=== PATIENT | male | born 1975 | race Hispanic/Latino ===

== ENCOUNTER 2017-09-02 10:03 | Inpatient (IN) | payer MEDICAID ==
[2017-09-02 10:46] LABS: URINE BILIRUBIN NEGATIVE (NEGATIVE); URINE BLOOD NEGATIVE (NEGATIVE); URINE CLARITY Clear (Clear); URINE COLOR Yellow (YELLOW); URINE GLUCOSE (UA) 3+ mg/dL (Normal); URINE LEUKOCYTE ESTERASE NEG Leu/uL (Negative); URINE PROTEIN NEGATIVE (NEGATIVE); URINE UROBILINOGEN NORMAL mg/dL (0.2-1.0)
[2017-09-02 10:47] LABS: BASO # 0.1 K/uL (0.0-0.2); BASO % 1.4 % (0.0-2.0); EOS # 0.1 K/uL (0.0-0.7); EOS % 2.1 % (0.0-4.0); HEMOGLOBIN 16.9 g/dL (12.0-18.0); LYMPH # 1.2 K/uL (1.0-4.3); LYMPH % 18.4 % (20.0-40.0); MEAN CELL VOLUME 91.4 fL (80.0-94.0); MEAN CORPUSCULAR HEMOGLOBIN 31.1 pg (27.0-31.0); MEAN PLATELET VOLUME 9.3 fL (7.2-11.7); MONO # 0.4 K/uL (0.0-0.8); MONO % 5.9 % (0.0-10.0); NEUT # 4.8 K/uL (1.8-7.0); NEUT % 72.2 % (50.0-75.0); NRBC % 0.1 % (0.0-2.0); RBC 5.43 Mil/uL (4.40-5.90); RED CELL DISTRIBUTION WIDTH 14.5 % (11.5-14.5); WHITE BLOOD COUNT 6.7 K/uL (4.8-10.8)
[2017-09-02 11:05] LABS: ALB/GLOB RATIO 1.2 (1.0-2.1); ALBUMIN 4.3 g/dL (3.5-5.0); ALT/SGPT 162 U/L (21-72); AST/SGOT 90 U/L (17-59); BLOOD UREA NITROGEN 14 mg/dL (9-20); CALCIUM 9.5 mg/dl (8.6-10.4); GFR AFRICAN-AMERICAN > 60; GFR NON-AFRICAN AMERICAN > 60
[2017-09-02] MEDS ORDERED: (Novolin R) Insulin Human Regular 100 units/ml vial IV STA ×2 (11:20→12:41)
[2017-09-02] MEDS ORDERED: Sodium Chloride 0.9% 1,000 ML IV STA (11:20)
[2017-09-02] MEDS ORDERED: (Novolin R) Insulin Human Regular 100 units/ml vial ONE ×3 (11:30→13:36)
[2017-09-02 11:31] LABS: BARBITURATES, UR NEGATIVE (NEGATIVE); PHENCYCLIDINE, UR NEGATIVE (NEGATIVE)
--- NOTE | 2017-09-02 11:43 | C.PDOC ---
History Of Present Illness 41 y/o male presents to the ED requesting detox from heroin and cocaine. Last use was yesterday. Received detox here in 07/2016. Patient has been prescreened. Reports he takes metformin for diabetes but did not take it today. PMD: Lopez Time Seen by Provider: 09/02/17 10:29 Chief Complaint (Nursing): Substance Abuse History Per: Patient History/Exam Limitations: no limitations Past Medical History Reviewed: Historical Data, Nursing Documentation, Vital Signs Vital Signs: Last Vital Signs Temp 98.7 F 09/03/17 20:58 Pulse 94 H 09/03/17 20:58 Resp 18 09/03/17 20:58 BP 117/79 09/03/17 20:58 Pulse Ox 98 09/03/17 20:58 - Medical History PMH: Diabetes Denies: Hepatitis, HIV, HTN, Seizures, Sexually Transmitted Disease - [facility] Procedures DETOXIFICATION SERVICES FOR SUBSTANCE ABUSE TREATMENT (08/03/16) Family History: States: Unknown Family Hx - Social History Hx Alcohol Use: Yes (beer) Hx Substance Use: Yes (heroin, cocaine) - Immunization History Hx Tetanus Toxoid Vaccination: No Hx Influenza Vaccination: No Hx Pneumococcal Vaccination: No Review Of Systems Except As Marked, All Systems Reviewed And Found Negative. Constitutional: Negative for: Fever, Sweats, Weakness Gastrointestinal: Negative for: Nausea, Vomiting Psych: Positive for: Other (substance abuse) Physical Exam - Physical Exam Appears: Non-toxic, No Acute Distress Skin: Normal Color, Warm, Dry Head: Atraumatic, Normacephalic Eye(s): bilateral: Normal Inspection, PERRL, EOMI Nose: Normal Oral Mucosa: Dry Neck: Normal ROM, Supple Chest: Symmetrical Cardiovascular: Rhythm Regular, No Murmur Respiratory: Normal Breath Sounds, No Accessory Muscle Use Gastrointestinal/Abdominal: Bowel Sounds, Soft, No Tenderness, No Distention Extremity: Bilateral: Atraumatic, Normal Color And Temperature, Normal ROM Neurological/Psych: Oriented x3, Normal Speech, Other (Calm, cooperative) Gait: Steady ED Course And Treatment - Laboratory Results Result Diagrams: 09/03/17 11:45 09/03/17 07:08 Lab Interpretation: Abnormal (elev glu, tox + cocaine, opiates, benzo's) O2 Sat by Pulse Oximetry: 100 (RA) Pulse Ox Interpretation: Normal Progress Note: insulin 10 IV and NS x 3 rounds (one every hour) for elevated glucose. Pt non-compliant in ED, drinking juices and sandwiches despite instructions to pause until FS's controlled. 1500: FS 258, pt feels better. IV dc'd. Crisis aware pt medically cleared for psych/detox. May be continued on Metformin 1000 mg BID while inpatient and FS's prior to breakfast and dinner to asses for effectiveness. Consult Medical Consult PRN Reevaluation Time: 14:45 Reassessment Condition: Improved Critical Care Time - Critical Care Note Total Time (in mins): 90 Documented critical care: time excludes all time spent performing seperately billable procedures. Medical Decision Making Medical Decision Making: Time: 10:31 Initial Plan: --Alcohol screen --Urine drug screen --CMP --CBC --Urinalysis --Pending detox bed assignment Time: 11:19 Labs reviewed. Blood sugar: 619 Time: 11:20 --IV fluids --Insulin 10 units IV Disposition Doctor Will See Patient In The: Hospital Counseled Patient/Family Regarding: Studies Performed, Diagnosis - Disposition Disposition: HOSPITALIZED Disposition Time: 14:46 Condition: GOOD - Clinical Impression Clinical Impression: Polysubstance abuse, Uncontrolled diabetes mellitus - Scribe Statement The provider has reviewed the documentation as recorded by the Scribe (Juhi Chapman) Provider Attestation: All medical record entries made by the Scribe were at my direction and personally dictated by me. I have reviewed the chart and agree that the record accurately reflects my personal performance of the history, physical exam, medical decision making, and the department course for this patient. I have also personally directed, reviewed, and agree with the discharge instructions and disposition.
[2017-09-02 11:55] LABS: BENZODIAZEPINES, UR POSITIVE (NEGATIVE); OPIATES, UR POSITIVE (NEGATIVE)
[2017-09-02] MEDS ORDERED: Sodium Chloride 0.9% 1,000 ML IV ONE ×2 (12:41→13:30)
[2017-09-02] MEDS ORDERED: (Novolin R) Insulin Human Regular 100 units/ml vial IV ONE (13:29)
[2017-09-02] MEDS ORDERED: Potassium Chloride 10 mEq ER Tab PO STA (13:30)
[2017-09-02] MEDS ORDERED: Sodium Chloride 0.9% 1,000 ML ONE (13:36)
[2017-09-02] MEDS ORDERED: Potassium Chloride 20 mEq ER Tab PO ONE (13:37)
[2017-09-02] MEDS ORDERED: Buprenorphine Hydrochloride 2 mg SL ONE ×2 (16:09→17:45)
[2017-09-02] MEDS ORDERED: Aluminum Hydroxide/Magnesium Hydroxide Susp (30 mL) PO PRN (17:00)
--- NOTE | 2017-09-02 18:13 | PCM.BM ---
Treatment Plan Problems - Problems identified on initial assessmt potiential for autonomic instability Date Initiated: 09/02/17 Time Initiated: 18:23 Assessment reference: NA Status: Active potiential for opiate withdrawal Date Initiated: 09/02/17 Time Initiated: 18:23 Assessment reference: NA Status: Active Treatment assets and liabiliti Patient Assests: ADL independent Patient Liabilities: substance abuse - Milieu Protocol Maintain good personal hygiene: daily Encourage regular showers, daily Remind patient to perform daily oral care, daily Assist patient to perform ADL's Maintain personal safety: every shift Educate patient to report safety concerns to staff, every shift Monitor environment for contraband/sharps Medication safety: Monitor for expected outcome, potential side effects: every shift, Assess barriers to learning: every shift, Assess readiness for medication education: every shift
--- NOTE | 2017-09-02 22:06 | CP.PCM.CON ---
<Oneida Kirkland - Last Filed: 09/02/17 22:02> History of Present Illness - History of Present Illness History of Present Illness: Medicine Consult for elevated blood sugar Patient is a 41 y/o M with PMhx of DMII who presents for detox of heroin, cocaine, and alcohol. Medicine consulted because patient's blood glucose 454. Patient says he knows his blood sugar would be high because he is turning to food during his withdrawal. Patient said he was snacking a lot and drinking many juices. Patient normally at home does not check his blood sugar often. Patient feeling okay and does not have any complaints. Patient not having any abdominal pain, nausea or vomiting. PMD: Dr. Lopez PMHx: DMII Allergies: NKDA Psurg: none Home meds: Lantus 25 u hs, Metformin 1000mg BID, Remeron 15 mg HS Socialhx: snorts 20-25 bags of heroin per day, used to inject, smokes cocaine, drinks 3-6 beers per day, smokes 1 ppd Review of Systems - Constitutional Constitutional: absent: Fever - Cardiovascular Cardiovascular: absent: Chest Pain, Dyspnea - Gastrointestinal Gastrointestinal: absent: Constipation, Diarrhea, Nausea, Vomiting - Integumentary Integumentary: absent: Rash - Hematologic/Lymphatic Hematologic: absent: Easy Bleeding, Easy Bruising Past Patient History - Infectious Disease Hx of Infectious Diseases: None - Past Medical History & Family History Past Medical History?: Yes - Past Social History Smoking Status: Current Some Days Smoker - CARDIAC Hx Hypertension: No - PULMONARY Hx Tuberculosis: No - NEUROLOGICAL Hx Seizures: No - ENDOCRINE/METABOLIC Hx Diabetes Mellitus Type 2: Yes - HEMATOLOGICAL/ONCOLOGICAL Hx Human Immunodeficiency Virus (HIV): No - MUSCULOSKELETAL/RHEUMATOLOGICAL Hx Falls: No - GENITOURINARY/GYNECOLOGICAL Hx Sexually Transmitted Disorders: No - PSYCHIATRIC Hx Substance Use: Yes (heroin, cocaine) - SURGICAL HISTORY Hx Surgeries: No - ANESTHESIA Hx Anesthesia: No Meds Allergies/Adverse Reactions: Allergies Allergy/AdvReac Type Severity Reaction Status Date / Time No Known Allergies Allergy Verified 08/03/16 12:30 - Medications Medications: Current Medications Al Hydrox/Mg Hydrox/Simethicone (Maalox 30 Ml) 30 ml PO TID PRN PRN Reason: Indigestion / Heartburn Clonidine HCl (Catapres) 0.1 mg PO Q8 PRN PRN Reason: COWS Score More or Equal to 5 Hydroxyzine HCl (Atarax) 50 mg PO Q6H PRN PRN Reason: Anxiety Last Admin: 09/02/17 21:37 Dose: 50 mg Ibuprofen (Motrin Tab) 600 mg PO Q6H PRN PRN Reason: Pain, moderate (4-7) Last Admin: 09/02/17 18:42 Dose: 600 mg Loperamide HCl (Imodium) 2 mg PO Q8 PRN PRN Reason: Diarrhea Metformin HCl (Glucophage Xr) 1,000 mg PO BID [facility] Last Admin: 09/02/17 18:47 Dose: 1,000 mg Nicotine (Nicoderm Cq) 1 patch TD DAILY [facility] Last Admin: 09/02/17 20:39 Dose: 1 patch Ondansetron HCl (Zofran Tab) 4 mg PO Q8 PRN PRN Reason: Nausea/Vomiting Trazodone HCl (Desyrel) 100 mg PO HS PRN PRN Reason: Insomnia Last Admin: 09/02/17 21:37 Dose: 100 mg Physical Exam - Constitutional Appears: Non-toxic, No Acute Distress - Head Exam Head Exam: ATRAUMATIC, NORMAL INSPECTION, NORMOCEPHALIC - Eye Exam Eye Exam: EOMI, Normal appearance - ENT Exam ENT Exam: Mucous Membranes Moist - Respiratory Exam Respiratory Exam: Clear to Auscultation Bilateral, NORMAL BREATHING PATTERN - Cardiovascular Exam Cardiovascular Exam: REGULAR RHYTHM, RRR, +S1, +S2 - GI/Abdominal Exam GI & Abdominal Exam: Normal Bowel Sounds, Soft. absent: Distended - Extremities Exam Extremities exam: Negative for: pedal edema, tenderness - Neurological Exam Neurological exam: Alert, Oriented x3 - Psychiatric Exam Psychiatric exam: Normal Affect, Normal Mood - Skin Skin Exam: Intact, Normal Color, Warm Results - Vital Signs Recent Vital Signs: Last Vital Signs Temp 98.3 F 09/02/17 16:51 Pulse 76 09/02/17 16:51 Resp 18 09/02/17 16:51 BP 120/73 09/02/17 16:51 Pulse Ox 100 09/02/17 19:08 - Labs Result Diagrams: 09/02/17 10:35 09/02/17 10:35 Labs: Laboratory Results - last 24 hr 09/02/17 09/02/17 09/02/17 10:35 10:35 10:35 WBC 6.7 RBC 5.43 Hgb 16.9 Hct 49.7 MCV 91.4 D MCH 31.1 H MCHC 34.0 RDW 14.5 Plt Count 153 MPV 9.3 Neut % (Auto) 72.2 Lymph % (Auto) 18.4 L Knott % (Auto) 5.9 Eos % (Auto) 2.1 Baso % (Auto) 1.4 Neut # (Auto) 4.8 Lymph # (Auto) 1.2 Knott # (Auto) 0.4 Eos # (Auto) 0.1 Baso # (Auto) 0.1 Sodium 133 Potassium 4.4 Chloride 91 L Carbon Dioxide 27 Anion Gap 19 BUN 14 Creatinine 0.7 L Est GFR ( Amer) > 60 Est GFR (Non-Af Amer) > 60 POC Glucose (mg/dL) Random Glucose 619 H* D Calcium 9.5 Total Bilirubin 1.0 AST 90 H ALT 162 H Alkaline Phosphatase 132 H Total Protein 7.9 Albumin 4.3 Globulin 3.6 Albumin/Globulin Ratio 1.2 Urine Color Yellow Urine Clarity Clear Urine pH 7.0 Ur Specific [place] 1.025 Urine Protein Negative Urine Glucose (UA) 3+ H Urine Ketones Negative Urine Blood Negative Urine Nitrate Negative Urine Bilirubin Negative Urine Urobilinogen Normal Ur Leukocyte Esterase Neg Urine Opiates Screen Urine Methadone Screen Ur Barbiturates Screen Ur Phencyclidine Scrn Ur Amphetamines Screen U Benzodiazepines Scrn U Oth Cocaine Metabols U Cannabinoids Screen Alcohol, Quantitative < 10 09/02/17 09/02/17 09/02/17 10:35 12:29 13:27 WBC RBC Hgb Hct MCV MCH MCHC RDW Plt Count MPV Neut % (Auto) Lymph % (Auto) Knott % (Auto) Eos % (Auto) Baso % (Auto) Neut # (Auto) Lymph # (Auto) Knott # (Auto) Eos # (Auto) Baso # (Auto) Sodium Potassium Chloride Carbon Dioxide Anion Gap BUN Creatinine Est GFR ( Amer) Est GFR (Non-Af Amer) POC Glucose (mg/dL) 454 H* 351 H Random Glucose Calcium Total Bilirubin AST ALT Alkaline Phosphatase Total Protein Albumin Globulin Albumin/Globulin Ratio Urine Color Urine Clarity Urine pH Ur Specific [place] Urine Protein Urine Glucose (UA) Urine Ketones Urine Blood Urine Nitrate Urine Bilirubin Urine Urobilinogen Ur Leukocyte Esterase Urine Opiates Screen Positive H Urine Methadone Screen Negative Ur Barbiturates Screen Negative Ur Phencyclidine Scrn Negative Ur Amphetamines Screen Negative U Benzodiazepines Scrn Positive U Oth Cocaine Metabols Positive H U Cannabinoids Screen Negative Alcohol, Quantitative 09/02/17 14:37 WBC RBC Hgb Hct MCV MCH MCHC RDW Plt Count MPV Neut % (Auto) Lymph % (Auto) Knott % (Auto) Eos % (Auto) Baso % (Auto) Neut # (Auto) Lymph # (Auto) Knott # (Auto) Eos # (Auto) Baso # (Auto) Sodium Potassium Chloride Carbon Dioxide Anion Gap BUN Creatinine Est GFR ( Amer) Est GFR (Non-Af Amer) POC Glucose (mg/dL) 258 H Random Glucose Calcium Total Bilirubin AST ALT Alkaline Phosphatase Total Protein Albumin Globulin Albumin/Globulin Ratio Urine Color Urine Clarity Urine pH Ur Specific [place] Urine Protein Urine Glucose (UA) Urine Ketones Urine Blood Urine Nitrate Urine Bilirubin Urine Urobilinogen Ur Leukocyte Esterase Urine Opiates Screen Urine Methadone Screen Ur Barbiturates Screen Ur Phencyclidine Scrn Ur Amphetamines Screen U Benzodiazepines Scrn U Oth Cocaine Metabols U Cannabinoids Screen Alcohol, Quantitative Assessment & Plan - Assessment and Plan (Free Text) Assessment: DM II continue home medications: Metformin 1000mg po BID, Lantus 25 u HS accuchecks ACHS ISS-low f/u HgA1C Polysubstance abuse management as per psych <Sergio Vasquez P - Last Filed: 09/03/17 06:30> Meds - Medications Medications: Current Medications Al Hydrox/Mg Hydrox/Simethicone (Maalox 30 Ml) 30 ml PO TID PRN PRN Reason: Indigestion / Heartburn Clonidine HCl (Catapres) 0.1 mg PO Q8 PRN PRN Reason: COWS Score More or Equal to 5 Hydroxyzine HCl (Atarax) 50 mg PO Q6H PRN PRN Reason: Anxiety Last Admin: 09/02/17 21:37 Dose: 50 mg Ibuprofen (Motrin Tab) 600 mg PO Q6H PRN PRN Reason: Pain, moderate (4-7) Last Admin: 09/02/17 18:42 Dose: 600 mg Insulin Glargine (Lantus) 25 unit SC HS JOHN Last Admin: 09/02/17 22:25 Dose: 25 units Insulin Human Regular (Novolin R) 0 unit SC ACHS JOHN PRN Reason: Protocol Loperamide HCl (Imodium) 2 mg PO Q8 PRN PRN Reason: Diarrhea Metformin HCl (Glucophage Xr) 1,000 mg PO BID [facility] Last Admin: 09/02/17 18:47 Dose: 1,000 mg Nicotine (Nicoderm Cq) 1 patch TD DAILY [facility] Last Admin: 09/02/17 20:39 Dose: 1 patch Ondansetron HCl (Zofran Tab) 4 mg PO Q8 PRN PRN Reason: Nausea/Vomiting Trazodone HCl (Desyrel) 100 mg PO HS PRN PRN Reason: Insomnia Last Admin: 09/02/17 21:37 Dose: 100 mg Results - Vital Signs Recent Vital Signs: Last Vital Signs Temp 98.3 F 09/02/17 22:24 Pulse 73 09/02/17 22:24 Resp 20 09/02/17 22:24 BP 133/81 09/02/17 22:24 Pulse Ox 97 09/02/17 22:24 - Labs Result Diagrams: 09/02/17 10:35 09/02/17 10:35 Labs: Laboratory Results - last 24 hr 09/02/17 09/02/17 09/02/17 10:35 10:35 10:35 WBC 6.7 RBC 5.43 Hgb 16.9 Hct 49.7 MCV 91.4 D MCH 31.1 H MCHC 34.0 RDW 14.5 Plt Count 153 MPV 9.3 Neut % (Auto) 72.2 Lymph % (Auto) 18.4 L Knott % (Auto) 5.9 Eos % (Auto) 2.1 Baso % (Auto) 1.4 Neut # (Auto) 4.8 Lymph # (Auto) 1.2 Knott # (Auto) 0.4 Eos # (Auto) 0.1 Baso # (Auto) 0.1 Sodium 133 Potassium 4.4 Chloride 91 L Carbon Dioxide 27 Anion Gap 19 BUN 14 Creatinine 0.7 L Est GFR ( Amer) > 60 Est GFR (Non-Af Amer) > 60 POC Glucose (mg/dL) Random Glucose 619 H* D Calcium 9.5 Total Bilirubin 1.0 AST 90 H ALT 162 H Alkaline Phosphatase 132 H Total Protein 7.9 Albumin 4.3 Globulin 3.6 Albumin/Globulin Ratio 1.2 Urine Color Yellow Urine Clarity Clear Urine pH 7.0 Ur Specific [place] 1.025 Urine Protein Negative Urine Glucose (UA) 3+ H Urine Ketones Negative Urine Blood Negative Urine Nitrate Negative Urine Bilirubin Negative Urine Urobilinogen Normal Ur Leukocyte Esterase Neg Urine Opiates Screen Urine Methadone Screen Ur Barbiturates Screen Ur Phencyclidine Scrn Ur Amphetamines Screen U Benzodiazepines Scrn U Oth Cocaine Metabols U Cannabinoids Screen Alcohol, Quantitative < 10 09/02/17 09/02/17 09/02/17 10:35 12:29 13:27 WBC RBC Hgb Hct MCV MCH MCHC RDW Plt Count MPV Neut % (Auto) Lymph % (Auto) Knott % (Auto) Eos % (Auto) Baso % (Auto) Neut # (Auto) Lymph # (Auto) Knott # (Auto) Eos # (Auto) Baso # (Auto) Sodium Potassium Chloride Carbon Dioxide Anion Gap BUN Creatinine Est GFR ( Amer) Est GFR (Non-Af Amer) POC Glucose (mg/dL) 454 H* 351 H Random Glucose Calcium Total Bilirubin AST ALT Alkaline Phosphatase Total Protein Albumin Globulin Albumin/Globulin Ratio Urine Color Urine Clarity Urine pH Ur Specific [place] Urine Protein Urine Glucose (UA) Urine Ketones Urine Blood Urine Nitrate Urine Bilirubin Urine Urobilinogen Ur Leukocyte Esterase Urine Opiates Screen Positive H Urine Methadone Screen Negative Ur Barbiturates Screen Negative Ur Phencyclidine Scrn Negative Ur Amphetamines Screen Negative U Benzodiazepines Scrn Positive U Oth Cocaine Metabols Positive H U Cannabinoids Screen Negative Alcohol, Quantitative 09/02/17 14:37 WBC RBC Hgb Hct MCV MCH MCHC RDW Plt Count MPV Neut % (Auto) Lymph % (Auto) Knott % (Auto) Eos % (Auto) Baso % (Auto) Neut # (Auto) Lymph # (Auto) Knott # (Auto) Eos # (Auto) Baso # (Auto) Sodium Potassium Chloride Carbon Dioxide Anion Gap BUN Creatinine Est GFR ( Amer) Est GFR (Non-Af Amer) POC Glucose (mg/dL) 258 H Random Glucose Calcium Total Bilirubin AST ALT Alkaline Phosphatase Total Protein Albumin Globulin Albumin/Globulin Ratio Urine Color Urine Clarity Urine pH Ur Specific [place] Urine Protein Urine Glucose (UA) Urine Ketones Urine Blood Urine Nitrate Urine Bilirubin Urine Urobilinogen Ur Leukocyte Esterase Urine Opiates Screen Urine Methadone Screen Ur Barbiturates Screen Ur Phencyclidine Scrn Ur Amphetamines Screen U Benzodiazepines Scrn U Oth Cocaine Metabols U Cannabinoids Screen Alcohol, Quantitative Attending/Attestation - Attestation I have personally seen and examined this patient.: Yes I have fully participated in the care of the patient.: Yes I have reviewed all pertinent clinical information: Yes Notes (Text): 09/03/17 06:26 Patient with polysubstace abuse mainly heroin by sniffing, with difficulties in impulse control for detox for polysubstance heroin, tobacco, alcohol, cocaine, not in clinical withdrawal, has h/o dm2 with irratic behaviour of eating also contributed by anxiety of detoxing, with elevated glucose, clinically not symptomatic. Patient counselled about polysubstance abuse, checking glucose tid ac and hs, with trying his best to avoid any meals in between. Resumed his lantus and metformin dose. Patient denies h/o hepc or hiv or hepb.
[2017-09-02] MEDS: (Lantus) Insulin Glargine, Recombinant SC SCH (22:25)
[2017-09-02] MEDS: (Novolin R) Insulin Human Regular 100 units/ml vial SC SCH (23:09)
[2017-09-03] MEDS ORDERED: (Novolin R) Insulin Human Regular 100 units/ml vial SC ONE (02:36)
[2017-09-03] MEDS: (Novolin R) Insulin Human Regular 100 units/ml vial SC SCH ×4 (08:25→22:16)
--- NOTE | 2017-09-03 10:04 | PCM.PSYCH ---
Initial Psychiatric Evaluation - Initial Psychiatric Evaluation Type of Admission: Voluntary Legal Status: Capacity Chief Complaint (in patient's own words): "I need to get clean" History of Present Illness and Precipitating Events: HPI: Patient is a 41 year old male who is single, lives with his mom and sister, currently unemployed, came to get help in heroin and alcohol detox. He uses heroin, cocaine, and alcohol. Primary drug use is heroin, which he snorts about 20 bags per day. He began using three years ago. Patient was fired specifically because he had asked for time off to go through detox, after which his job told him not to come back. After that happened he was kicked out of his mom's house and started feeling depressed and hopeless. Patient denies any suicidal or homicidal ideation, and no auditory or visual hallucinations. Detox Hx: N/A Rehab Hx: N/A Medical Hx: N/A Medications: N/A Psych Hx: N/A Fam Hx: N/A Current Medications: Active Medications Generic Name Dose Route Start Last Admin Trade Name Freq PRN Reason Stop Dose Admin Al Hydrox/Mg Hydrox/Simethicone 30 ml 09/02/17 17:00 Maalox 30 Ml PO TID PRN Indigestion / Heartburn Clonidine HCl 0.1 mg 09/02/17 17:00 Catapres PO Q8 PRN COWS Score More or Equal to 5 Hydroxyzine HCl 50 mg 09/02/17 17:00 09/02/17 21:37 Atarax PO 50 mg Q6H PRN Administration Anxiety Ibuprofen 600 mg 09/02/17 17:00 09/02/17 18:42 Motrin Tab PO 600 mg Q6H PRN Administration Pain, moderate (4-7) Insulin Glargine 25 unit 09/02/17 22:15 09/02/17 22:25 Lantus SC 25 units HS JOHN Administration Insulin Human Regular 0 unit 09/03/17 02:12 09/03/17 08:25 Novolin R SC 8 unit ACHS JOHN Administration Protocol Loperamide HCl 2 mg 09/02/17 17:00 Imodium PO Q8 PRN Diarrhea Metformin HCl 1,000 mg 09/02/17 18:00 09/03/17 09:12 Glucophage Xr PO 1,000 mg BID JOHN Administration Nicotine 1 patch 09/02/17 20:00 09/03/17 09:12 Nicoderm Cq TD 1 patch DAILY JOHN Administration Ondansetron HCl 4 mg 09/02/17 17:00 Zofran Tab PO Q8 PRN Nausea/Vomiting Trazodone HCl 100 mg 09/02/17 22:00 09/02/17 21:37 Desyrel PO 100 mg HS PRN Administration Insomnia Past Psychiatric History - Past Psychiatric History Previous Treatment History: None Pertinent Medical Hx (Current Medical&Sleep Prob, Allergies): Allergies Allergy/AdvReac Type Severity Reaction Status Date / Time No Known Allergies Allergy Verified 08/03/16 12:30 Insulin Regular [HumuLIN R] 100 unit IJ HS 08/03/16 metFORMIN ER [glucoPHAGE XR] 1,000 mg PO BID #60 ter 08/07/16 Review of Systems - Psychiatric Psychiatric: Anxiety, Depression, Irritability. absent: Auditory Hallucinations , Homicidal Ideation, Suicidal Ideation, Tactile Hallucinations Mental Status Examination - Personal Presentation Personal Presentation: Looks stated age - Affect Affect: Depressed - Motor Activity Motor Activity: Calm - Reliability in Providing Information Reliability in Providing Information: Good - Speech Speech: Organized - Mood Mood: Depressed - Formal Thought Process Formal Thought Process: No Impairment - Obsessions/Compulsions Obsessions: No Compulsions: No - Cognitive Functions Orientation: Person, Place, Situation, Time Sensorium: Alert Attention/Concentration: Attentive Abstract Thinking: [place] Estimate of Intelligence: Below average Judgement: Imparied, as evidence by: Poor judgement Memory: Recent intact, as evidence by: Ability to recall events of the day, Remote intact, as evidenced by: Abilit to recall sig. life events - Risk Risk: Withdrawal, Diminished functioning - Strength & Assets Inventory Strength & Assets Inventory: Cooperative DSM 5 DX - DSM 5 DSM 5 Diagnosis: Opioid Withdrawal Opioid Use d/o - severe Anxiety d/o Cocaine use d.o moderate Alcohol use disorder moderate Borderline Personality traits - Recommended/Plan of Treatment Treatment Recommendations and Plan of Treatment: Plan for IGOR intake Subutex taper Gabapentin for augmentation As needed medications All risks, benefits and alternatives of the meds discussed, and the pt agreed and understood. Attend groups and activities Supportive therapy and psychoeducation SC for abstinence CBT for relapse prevention Encourage MAT Refer to rehab or IOP, and self-help groups Smoking cessation with SC Nicotine patch DM Continue prescribed meds Projected ELOS: 4-5 days Prognosis: Good with rehab Discharge Plan and Discharge Criteria: Rehab and MAT
[2017-09-03 10:35] LABS: ALB/GLOB RATIO 1.2 (1.0-2.1); ALBUMIN 3.3 g/dL (3.5-5.0); ALT/SGPT 112 U/L (21-72); AST/SGOT 49 U/L (17-59); BLOOD UREA NITROGEN 25 mg/dL (9-20); GFR AFRICAN-AMERICAN > 60; GFR NON-AFRICAN AMERICAN > 60
[2017-09-03 11:51] LABS: BASO # 0.1 K/uL (0.0-0.2); BASO % 1.6 % (0.0-2.0); EOS # 0.2 K/uL (0.0-0.7); EOS % 3.6 % (0.0-4.0); LYMPH # 1.6 K/uL (1.0-4.3); LYMPH % 27.7 % (20.0-40.0); MEAN CORPUSCULAR HEMOGLOBIN 30.5 pg (27.0-31.0); MEAN CORPUSCULAR HGB CONC 33.5 g/dL (33.0-37.0); MEAN PLATELET VOLUME 9.4 fL (7.2-11.7); MONO # 0.5 K/uL (0.0-0.8); MONO % 9.4 % (0.0-10.0); NEUT # 3.3 K/uL (1.8-7.0); NEUT % 57.7 % (50.0-75.0); RBC 4.6 Mil/uL (4.40-5.90); RED CELL DISTRIBUTION WIDTH 13.5 % (11.5-14.5); WHITE BLOOD COUNT 5.7 K/uL (4.8-10.8)
[2017-09-03] MEDS ORDERED: Buprenorphine Hydrochloride 2 mg SL ONE (15:50)
--- NOTE | 2017-09-03 16:27 | CP.PCM.PN ---
<Jimy Gloria - Last Filed: 09/03/17 16:30> Subjective - Date & Time of Evaluation Date of Evaluation: 09/03/17 Time of Evaluation: 07:50 - Subjective Subjective: PGY-[address] Gonsalo Lion. No acute events noted overnight. Patient was seen this morning in detox at bedside. He stated he was having symptoms of withdrawal such as leg cramps and stomach cramps and some shaking. He said he did not sleep well. Objective - Vital Signs/Intake and Output Vital Signs (last 24 hours): Temp Pulse Resp BP Pulse Ox 98.6 F 84 18 118/81 98 09/03/17 13:25 09/03/17 13:25 09/03/17 13:25 09/03/17 13:25 09/03/17 13:25 - Medications Medications: Current Medications Al Hydrox/Mg Hydrox/Simethicone (Maalox 30 Ml) 30 ml PO TID PRN PRN Reason: Indigestion / Heartburn Buprenorphine HCl (Subutex) 6 mg SL .TAPER [facility] PRN Reason: Taper Stop: 09/07/17 09:59 Clonidine HCl (Catapres) 0.1 mg PO Q8 PRN PRN Reason: COWS Score More or Equal to 5 Hydroxyzine HCl (Atarax) 50 mg PO Q6H PRN PRN Reason: Anxiety Last Admin: 09/02/17 21:37 Dose: 50 mg Ibuprofen (Motrin Tab) 600 mg PO Q6H PRN PRN Reason: Pain, moderate (4-7) Last Admin: 09/02/17 18:42 Dose: 600 mg Insulin Glargine (Lantus) 25 unit SC HS [facility] Last Admin: 09/02/17 22:25 Dose: 25 units Insulin Human Regular (Novolin R) 0 unit SC ACHS JOHN PRN Reason: Protocol Last Admin: 09/03/17 16:08 Dose: 10 unit Loperamide HCl (Imodium) 2 mg PO Q8 PRN PRN Reason: Diarrhea Metformin HCl (Glucophage Xr) 1,000 mg PO BID [facility] Last Admin: 09/03/17 09:12 Dose: 1,000 mg Nicotine (Nicoderm Cq) 1 patch TD DAILY [facility] Last Admin: 09/03/17 09:12 Dose: 1 patch Ondansetron HCl (Zofran Tab) 4 mg PO Q8 PRN PRN Reason: Nausea/Vomiting Trazodone HCl (Desyrel) 100 mg PO HS PRN PRN Reason: Insomnia Last Admin: 09/02/17 21:37 Dose: 100 mg - Labs Labs: 09/03/17 11:45 09/03/17 07:08 - Additional Findings Additional findings: - Constitutional Appears: Non-toxic, No Acute Distress - Head Exam Head Exam: ATRAUMATIC, NORMAL INSPECTION, NORMOCEPHALIC - Eye Exam Eye Exam: EOMI, Normal appearance - ENT Exam ENT Exam: Mucous Membranes Moist - Respiratory Exam Respiratory Exam: Clear to Auscultation Bilateral, NORMAL BREATHING PATTERN - Cardiovascular Exam Cardiovascular Exam: REGULAR RHYTHM, RRR, +S1, +S2 - GI/Abdominal Exam GI & Abdominal Exam: Normal Bowel Sounds, Soft. absent: Distended - Extremities Exam Extremities exam: Negative for: pedal edema, tenderness - Neurological Exam Neurological exam: Alert, Oriented x3 - Psychiatric Exam Psychiatric exam: Normal Affect, Normal Mood - Skin Skin Exam: Intact, Normal Color, Warm Assessment and Plan - Assessment and Plan (Free Text) Assessment: Uncontrolled DM HgA1C 15.2 Today finger checks in the 500s - we will allow 24 hours of sliding scale. Tomorrow we will start scheduled daytime insulin regimen. continue home medication Metformin 1000mg po BID continue home medication Lantus 25u HS accuchecks ACHS ISS-medium maintain meals without snacks in between meals UA: glucose 3+ F/U Lipid panel F/U TSH/Free T4 Consistent Carb diet Polysubstance abuse management as per psych Maalox 30ml PO TID PRN Buprenorphine 6mg SL Clonidine 0.1mg PO Q8H PRN Hydroxyzine 50mg PO Q6H PRN Ibuprofen 600mg PO Q6H Loperamide 2mg PO Q8H PRN Nicotine patch 21mg TD Zofran 4mg PO Q8H PRN Trazodone 100mg PO HS PRN <Gonsalo Lion - Last Filed: 09/03/17 19:32> Objective - Vital Signs/Intake and Output Vital Signs (last 24 hours): Temp Pulse Resp BP Pulse Ox 98.0 F 75 18 113/69 98 09/03/17 16:50 09/03/17 16:50 09/03/17 16:50 09/03/17 16:50 09/03/17 16:50 - Medications Medications: Current Medications Al Hydrox/Mg Hydrox/Simethicone (Maalox 30 Ml) 30 ml PO TID PRN PRN Reason: Indigestion / Heartburn Buprenorphine HCl (Subutex) 6 mg SL .TAPER [facility] PRN Reason: Taper Stop: 09/07/17 09:59 Clonidine HCl (Catapres) 0.1 mg PO Q8 PRN PRN Reason: COWS Score More or Equal to 5 Hydroxyzine HCl (Atarax) 50 mg PO Q6H PRN PRN Reason: Anxiety Last Admin: 09/02/17 21:37 Dose: 50 mg Ibuprofen (Motrin Tab) 600 mg PO Q6H PRN PRN Reason: Pain, moderate (4-7) Last Admin: 09/02/17 18:42 Dose: 600 mg Insulin Glargine (Lantus) 25 unit SC HS [facility] Last Admin: 09/02/17 22:25 Dose: 25 units Insulin Human Regular (Novolin R) 0 unit SC ACHS [facility] PRN Reason: Protocol Last Admin: 09/03/17 16:08 Dose: 10 unit Loperamide HCl (Imodium) 2 mg PO Q8 PRN PRN Reason: Diarrhea Metformin HCl (Glucophage Xr) 1,000 mg PO BID [facility] Last Admin: 09/03/17 18:06 Dose: 1,000 mg Nicotine (Nicoderm Cq) 1 patch TD DAILY [facility] Last Admin: 09/03/17 09:12 Dose: 1 patch Ondansetron HCl (Zofran Tab) 4 mg PO Q8 PRN PRN Reason: Nausea/Vomiting Trazodone HCl (Desyrel) 100 mg PO HS PRN PRN Reason: Insomnia Last Admin: 09/02/17 21:37 Dose: 100 mg - Labs Labs: 09/03/17 11:45 09/03/17 07:08 Attending/Attestation - Attestation I have personally seen and examined this patient.: Yes I have fully participated in the care of the patient.: Yes I have reviewed all pertinent clinical information, including history, physical exam and plan: Yes Notes (Text): 09/03/17 19:29 Patient was seen and examined shortly after resident. Exam, assessment and plan were gone over with the resident. Extensive conversation with the patient concerning his overeating and eating multiple snacks throughout the day (which he states he does when he is not doing drugs) and how this was imacting his Diabetes. Gonsalo Lion D.O.
[2017-09-03] MEDS: (Lantus) Insulin Glargine, Recombinant SC SCH (22:17)
[2017-09-04 08:08] LABS: BASO # 0.1 K/uL (0.0-0.2); BASO % 1.3 % (0.0-2.0); EOS # 0.2 K/uL (0.0-0.7); EOS % 2.8 % (0.0-4.0); HEMOGLOBIN 14.5 g/dL (12.0-18.0); LYMPH # 2.5 K/uL (1.0-4.3); LYMPH % 30.8 % (20.0-40.0); MEAN CELL VOLUME 89.6 fL (80.0-94.0); MEAN CORPUSCULAR HEMOGLOBIN 31.2 pg (27.0-31.0); MEAN CORPUSCULAR HGB CONC 34.9 g/dL (33.0-37.0); MEAN PLATELET VOLUME 8.9 fL (7.2-11.7); MONO # 0.7 K/uL (0.0-0.8); MONO % 8.6 % (0.0-10.0); NEUT # 4.6 K/uL (1.8-7.0); NEUT % 56.5 % (50.0-75.0); RBC 4.63 Mil/uL (4.40-5.90); RED CELL DISTRIBUTION WIDTH 13.8 % (11.5-14.5); WHITE BLOOD COUNT 8.1 K/uL (4.8-10.8)
[2017-09-04 08:27] LABS: ALB/GLOB RATIO 1.1 (1.0-2.1); ALBUMIN 3.4 g/dL (3.5-5.0); ALT/SGPT 110 U/L (21-72); AST/SGOT 53 U/L (17-59); BLOOD UREA NITROGEN 14 mg/dL (9-20); CALCIUM 8.3 mg/dl (8.6-10.4); GFR AFRICAN-AMERICAN > 60; GFR NON-AFRICAN AMERICAN > 60; HDL CHOLESTEROL 57 mg/dL (30-70)
[2017-09-04 08:53] LABS: LDL CHOLESTEROL 70 mg/dL (0-129)
[2017-09-04] MEDS: (Novolin R) Insulin Human Regular 100 units/ml vial SC SCH ×4 (09:23→16:58)
[2017-09-04] MEDS ORDERED: (Novolin R) Insulin Human Regular 100 units/ml vial SC ONE ×2 (09:30→12:15)
[2017-09-04] MEDS ORDERED: Buprenorphine Hydrochloride 2 mg SL SCH (10:00)
[2017-09-04] MEDS: Buprenorphine Hydrochloride 2 mg SL SCH (10:01)
--- NOTE | 2017-09-04 12:46 | CP.PCM.PN ---
<Jimy Gloria - Last Filed: 09/04/17 12:42> Subjective - Date & Time of Evaluation Date of Evaluation: 09/04/17 Time of Evaluation: 12:42 - Subjective Subjective: PGY-[address] Gonsalo Lion. No acute events noted overnight. Patient was seen this morning in detox at bedside. He stated he was having symptoms of withdrawal such as leg cramps and stomach cramps and some shaking. He said he did not sleep well. He stated he had some mild abdominal cramps. He stated the medication he's receiving is helping. He denied chest pain, fever, shortness of breath. Objective - Vital Signs/Intake and Output Vital Signs (last 24 hours): Temp Pulse Resp BP Pulse Ox 98.1 F 72 20 100/69 99 09/04/17 06:05 09/04/17 06:05 09/04/17 06:05 09/04/17 06:05 09/04/17 06:05 - Medications Medications: Current Medications Al Hydrox/Mg Hydrox/Simethicone (Maalox 30 Ml) 30 ml PO TID PRN PRN Reason: Indigestion / Heartburn Buprenorphine HCl (Subutex) 8 mg SL DAILY [facility] PRN Reason: Taper Stop: 09/08/17 09:59 Last Admin: 09/04/17 10:01 Dose: 8 mg Clonidine HCl (Catapres) 0.1 mg PO Q8 PRN PRN Reason: COWS Score More or Equal to 5 Hydroxyzine HCl (Atarax) 50 mg PO Q6H PRN PRN Reason: Anxiety Last Admin: 09/03/17 21:27 Dose: 50 mg Ibuprofen (Motrin Tab) 600 mg PO Q6H PRN PRN Reason: Pain, moderate (4-7) Last Admin: 09/02/17 18:42 Dose: 600 mg Insulin Glargine (Lantus) 44 unit SC HS [facility] Insulin Human Regular (Novolin R) 6 unit SC AC [facility] Last Admin: 09/04/17 11:59 Dose: Not Given Loperamide HCl (Imodium) 2 mg PO Q8 PRN PRN Reason: Diarrhea Metformin HCl (Glucophage Xr) 1,000 mg PO BID [facility] Last Admin: 09/04/17 10:01 Dose: 1,000 mg Nicotine (Nicoderm Cq) 1 patch TD DAILY [facility] Last Admin: 09/04/17 10:02 Dose: 1 patch Ondansetron HCl (Zofran Tab) 4 mg PO Q8 PRN PRN Reason: Nausea/Vomiting Trazodone HCl (Desyrel) 100 mg PO HS PRN PRN Reason: Insomnia Last Admin: 09/03/17 21:27 Dose: 100 mg - Labs Labs: 09/04/17 07:58 09/04/17 07:58 - Additional Findings Additional findings: - Constitutional Appears: Non-toxic, No Acute Distress - Head Exam Head Exam: ATRAUMATIC, NORMAL INSPECTION, NORMOCEPHALIC - Eye Exam Eye Exam: EOMI, Normal appearance - ENT Exam ENT Exam: Mucous Membranes Moist - Respiratory Exam Respiratory Exam: Clear to Auscultation Bilateral, NORMAL BREATHING PATTERN - Cardiovascular Exam Cardiovascular Exam: REGULAR RHYTHM, RRR, +S1, +S2 - GI/Abdominal Exam GI & Abdominal Exam: Normal Bowel Sounds, Soft. absent: Distended - Extremities Exam Extremities exam: Negative for: pedal edema, tenderness - Neurological Exam Neurological exam: Alert, Oriented x3 - Psychiatric Exam Psychiatric exam: Normal Affect, Normal Mood - Skin Skin Exam: Intact, Normal Color, Warm Assessment and Plan - Assessment and Plan (Free Text) Assessment: Uncontrolled DM HgA1C 15.2 continue home medication Metformin 1000mg po BID Night-time Lantus increased from 25u to 44u HS Start Novolin 6u SC AC (before meals) accuchecks ACHS ISS-medium Encouraged no snacks in between meals UA: glucose 3+ Lipid panel NORMAL, TSH/Free T4 NORMAL Consistent Carb diet Polysubstance abuse management as per psych Maalox 30ml PO TID PRN Buprenorphine 6mg SL Clonidine 0.1mg PO Q8H PRN Hydroxyzine 50mg PO Q6H PRN Ibuprofen 600mg PO Q6H Loperamide 2mg PO Q8H PRN Nicotine patch 21mg TD Zofran 4mg PO Q8H PRN Trazodone 100mg PO HS PRN <Gonsalo Lion - Last Filed: 09/04/17 15:09> Objective - Vital Signs/Intake and Output Vital Signs (last 24 hours): Temp Pulse Resp BP Pulse Ox 98.0 F 88 18 119/84 98 09/04/17 13:25 09/04/17 13:25 09/04/17 13:25 09/04/17 13:25 09/04/17 13:25 - Medications Medications: Current Medications Al Hydrox/Mg Hydrox/Simethicone (Maalox 30 Ml) 30 ml PO TID PRN PRN Reason: Indigestion / Heartburn Buprenorphine HCl (Subutex) 8 mg SL DAILY [facility] PRN Reason: Taper Stop: 09/08/17 09:59 Last Admin: 09/04/17 10:01 Dose: 8 mg Clonidine HCl (Catapres) 0.1 mg PO Q8 PRN PRN Reason: COWS Score More or Equal to 5 Hydroxyzine HCl (Atarax) 50 mg PO Q6H PRN PRN Reason: Anxiety Last Admin: 09/03/17 21:27 Dose: 50 mg Ibuprofen (Motrin Tab) 600 mg PO Q6H PRN PRN Reason: Pain, moderate (4-7) Last Admin: 09/02/17 18:42 Dose: 600 mg Insulin Glargine (Lantus) 44 unit SC HS [facility] Insulin Human Regular (Novolin R) 6 unit SC AC [facility] Last Admin: 09/04/17 11:59 Dose: Not Given Lisinopril (Zestril) 2.5 mg PO DAILY [facility] Loperamide HCl (Imodium) 2 mg PO Q8 PRN PRN Reason: Diarrhea Metformin HCl (Glucophage Xr) 1,000 mg PO BID [facility] Last Admin: 09/04/17 10:01 Dose: 1,000 mg Nicotine (Nicoderm Cq) 1 patch TD DAILY [facility] Last Admin: 09/04/17 10:02 Dose: 1 patch Ondansetron HCl (Zofran Tab) 4 mg PO Q8 PRN PRN Reason: Nausea/Vomiting Trazodone HCl (Desyrel) 100 mg PO HS PRN PRN Reason: Insomnia Last Admin: 09/03/17 21:27 Dose: 100 mg - Labs Labs: 09/04/17 07:58 09/04/17 07:58 Attending/Attestation - Attestation I have personally seen and examined this patient.: Yes I have fully participated in the care of the patient.: Yes I have reviewed all pertinent clinical information, including history, physical exam and plan: Yes Notes (Text): 09/04/17 15:07 Patient was seen and examined at 8:30 AM Exam, assessment and plan were gone over with the resident. Based upon Accuchecks on 09/03/17: Increased Lantus to 44 Units SC HS Added Regular Insulin 6 units SC AC Meals For Hx Of DM 2 Requiring Insulin Added Lisinopril 2.5 mg PO 1x/day for Renal Protection NO statin added as LDL is 70 and HDL > 50 Gonsalo Lion D.O.
--- NOTE | 2017-09-04 12:59 | PCM.PYCHPN ---
Psychiatric Progress Note - Psychiatric Progress Note Patient seen today, length of contact: 16 minutes Problems Identified/Issues Discussed: The pt is seen, chart reviewed, case discussed with staff. The pt is compliant with medications and reports no side-effects. Symptoms are improving but needs more time to stabilize. He requested that he wants inpatient rehab after discharge. After care discussed, support and psychoeducation given. DSM 5 Symptoms Update: Opioid Withdrawal Opioid Use d/o - severe Anxiety d/o Cocaine use d.o moderate Alcohol use disorder moderate Medication Change: Yes (Subutex daily taper ) Medical Record Reviewed: Yes Mental Status Examination - Cognitive Function Orientation: Person, Place, Situation, Time Memory: Intact Attention: WNL Concentration: WNL Association: WN Fund of Knowledge: [facility] Decription of patient's judgement and insights: fair/good Addtional comments: He is calm and cooperative - Mood Mood: Anxious - Affect Affect: Constricted - Speech Speech: Appropriate - Formal Thought Process Formal Thought Process: No Impairment Psychotic Thoughts and Behaviors: denied - Suicidal Ideation Suicidal Ideation: No Plan: denied - Homicidal Ideation Homicidal Ideation: No Plan: denied Goal/Treatment Plan - Goal/Treatment Plan Need for Continued Stay: Discharge may exacerbated symptoms Progress Toward Problem(s) and Goals/Treatment Plan: Continue current treatment and management therapy in milieu Supportive therapy provided Medication benefits and side effects were discussed with the pt. He verbalized understanding and agree with the treatment plan. Estimated Date of D/C: 09/07/17 - Smoking Cessation Smoking Cessation Initiated: Yes
[2017-09-04] MEDS ORDERED: (Lantus) Insulin Glargine, Recombinant SC SCH (22:15)
[2017-09-05 07:33] LABS: BASO # 0.1 K/uL (0.0-0.2); BASO % 1.2 % (0.0-2.0); EOS # 0.2 K/uL (0.0-0.7); EOS % 2.5 % (0.0-4.0); LYMPH # 2.2 K/uL (1.0-4.3); LYMPH % 30.4 % (20.0-40.0); MEAN CELL VOLUME 89.7 fL (80.0-94.0); MEAN CORPUSCULAR HEMOGLOBIN 31.5 pg (27.0-31.0); MEAN CORPUSCULAR HGB CONC 35.2 g/dL (33.0-37.0); MEAN PLATELET VOLUME 8.9 fL (7.2-11.7); MONO # 0.5 K/uL (0.0-0.8); MONO % 7.4 % (0.0-10.0); NEUT # 4.3 K/uL (1.8-7.0); NEUT % 58.5 % (50.0-75.0); NRBC % 0.1 % (0.0-2.0); RBC 4.46 Mil/uL (4.40-5.90); RED CELL DISTRIBUTION WIDTH 13.8 % (11.5-14.5); WHITE BLOOD COUNT 7.4 K/uL (4.8-10.8)
[2017-09-05 08:24] LABS: ALB/GLOB RATIO 1.1 (1.0-2.1); ALBUMIN 3.4 g/dL (3.5-5.0); ALT/SGPT 97 U/L (21-72); AST/SGOT 48 U/L (17-59); BLOOD UREA NITROGEN 15 mg/dL (9-20); GFR AFRICAN-AMERICAN > 60; GFR NON-AFRICAN AMERICAN > 60
[2017-09-05] MEDS: (Novolin R) Insulin Human Regular 100 units/ml vial SC SCH ×2 (08:26→11:56)
[2017-09-05 09:07] VITALS: RESP 18
[2017-09-05] MEDS: Buprenorphine Hydrochloride 2 mg SL SCH (09:18)
--- NOTE | 2017-09-05 10:53 | CP.PCM.PN ---
Subjective - Date & Time of Evaluation Date of Evaluation: 09/05/17 Time of Evaluation: 10:46 - Subjective Subjective: PGY-[address] Gonsalo Lion. No acute events noted overnight. Patient was seen this morning in detox at bedside. He stated the medication he's receiving is helping. I told him of his Hgb 15.2 and that a level that high is very dangerous. He acknowledged this. He denied chest pain, fever, shortness of breath. Objective - Vital Signs/Intake and Output Vital Signs (last 24 hours): Temp Pulse Resp BP Pulse Ox 97.8 F 80 18 109/74 99 09/05/17 09:07 09/05/17 09:07 09/05/17 09:07 09/05/17 09:07 09/05/17 09:07 - Medications Medications: Current Medications Al Hydrox/Mg Hydrox/Simethicone (Maalox 30 Ml) 30 ml PO TID PRN PRN Reason: Indigestion / Heartburn Buprenorphine HCl (Subutex) 6 mg SL DAILY [facility] PRN Reason: Taper Stop: 09/08/17 09:59 Last Admin: 09/05/17 09:18 Dose: 6 mg Clonidine HCl (Catapres) 0.1 mg PO Q8 PRN PRN Reason: COWS Score More or Equal to 5 Hydroxyzine HCl (Atarax) 50 mg PO Q6H PRN PRN Reason: Anxiety Last Admin: 09/03/17 21:27 Dose: 50 mg Ibuprofen (Motrin Tab) 600 mg PO Q6H PRN PRN Reason: Pain, moderate (4-7) Last Admin: 09/02/17 18:42 Dose: 600 mg Insulin Glargine (Lantus) 44 unit SC HS [facility] Last Admin: 09/04/17 21:15 Dose: 44 units Insulin Human Regular (Novolin R) 6 unit SC AC [facility] Last Admin: 09/05/17 08:26 Dose: 6 unit Lisinopril (Zestril) 2.5 mg PO DAILY [facility] Last Admin: 09/05/17 09:18 Dose: 2.5 mg Loperamide HCl (Imodium) 2 mg PO Q8 PRN PRN Reason: Diarrhea Metformin HCl (Glucophage Xr) 1,000 mg PO BID [facility] Last Admin: 09/05/17 09:17 Dose: 1,000 mg Nicotine (Nicoderm Cq) 1 patch TD DAILY [facility] Last Admin: 09/05/17 09:18 Dose: 1 patch Ondansetron HCl (Zofran Tab) 4 mg PO Q8 PRN PRN Reason: Nausea/Vomiting Trazodone HCl (Desyrel) 100 mg PO HS PRN PRN Reason: Insomnia Last Admin: 09/04/17 21:15 Dose: 100 mg - Labs Labs: 09/05/17 07:07 09/05/17 07:07 - Additional Findings Additional findings: - Constitutional Appears: Non-toxic, No Acute Distress - Head Exam Head Exam: ATRAUMATIC, NORMAL INSPECTION, NORMOCEPHALIC - Eye Exam Eye Exam: EOMI, Normal appearance - ENT Exam ENT Exam: Mucous Membranes Moist - Respiratory Exam Respiratory Exam: Clear to Auscultation Bilateral, NORMAL BREATHING PATTERN - Cardiovascular Exam Cardiovascular Exam: REGULAR RHYTHM, RRR, +S1, +S2 - GI/Abdominal Exam GI & Abdominal Exam: Normal Bowel Sounds, Soft. absent: Distended - Extremities Exam Extremities exam: Negative for: pedal edema, tenderness - Neurological Exam Neurological exam: Alert, Oriented x3 - Psychiatric Exam Psychiatric exam: Normal Affect, Normal Mood - Skin Skin Exam: Intact, Normal Color, Warm Assessment and Plan - Assessment and Plan (Free Text) Assessment: Uncontrolled DM Accuchecks show improved glucose levels with new insulin regimen - we will continue this regiment and monitor Accuchecks ACHS Consistent Carb diet * Encouraged no snacks in between meals Labs/Diagnostics: HgA1C 15.2 UA: glucose 3+ Lipid panel NORMAL, TSH/Free T4 NORMAL * No statin as LDL is 70 and HDL > 50 Meds: continue home medication Metformin 1000mg po BID Night-time Lantus increased from 25u to 44u HS Start Novolin 6u SC AC (before meals) Start Lisinopril 2.5mg PO QD for renal protection ISS-medium Polysubstance abuse management as per psych Maalox 30ml PO TID PRN Buprenorphine 6mg SL Clonidine 0.1mg PO Q8H PRN Hydroxyzine 50mg PO Q6H PRN Ibuprofen 600mg PO Q6H Loperamide 2mg PO Q8H PRN Nicotine patch 21mg TD Zofran 4mg PO Q8H PRN Trazodone 100mg PO HS PRN
[2017-09-05 13:06] VITALS: BP 100/64; PULSE 81; TEMP 98.7; O2SAT 100
--- NOTE | 2017-09-05 20:52 | PCM.PYCHDC ---
Mental Status Examination - Mental Status Examination Orientation: Person Discharge Summary - Discharge Note Laboratory Data: Abnormal Lab Results 09/04/17 09/05/17 09/05/17 21:04 07:07 07:07 WBC 7.4 RBC 4.46 Hgb 14.0 Hct 39.9 MCV 89.7 MCH 31.5 H MCHC 35.2 RDW 13.8 Plt Count 152 MPV 8.9 Neut % (Auto) 58.5 Lymph % (Auto) 30.4 Reagan % (Auto) 7.4 Eos % (Auto) 2.5 Baso % (Auto) 1.2 Neut # (Auto) 4.3 Lymph # (Auto) 2.2 Reagan # (Auto) 0.5 Eos # (Auto) 0.2 Baso # (Auto) 0.1 Sodium 135 Potassium 4.1 Chloride 99 Carbon Dioxide 25 Anion Gap 14 BUN 15 Creatinine 0.6 L Est GFR ( Amer) > 60 Est GFR (Non-Af Amer) > 60 POC Glucose (mg/dL) 377 H Random Glucose 234 H Calcium 8.0 L Total Bilirubin 0.4 AST 48 ALT 97 H Alkaline Phosphatase 79 Total Protein 6.3 Albumin 3.4 L Globulin 3.0 Albumin/Globulin Ratio 1.1 09/05/17 09/05/17 07:40 11:46 WBC RBC Hgb Hct MCV MCH MCHC RDW Plt Count MPV Neut % (Auto) Lymph % (Auto) Reagan % (Auto) Eos % (Auto) Baso % (Auto) Neut # (Auto) Lymph # (Auto) Reagan # (Auto) Eos # (Auto) Baso # (Auto) Sodium Potassium Chloride Carbon Dioxide Anion Gap BUN Creatinine Est GFR ( Amer) Est GFR (Non-Af Amer) POC Glucose (mg/dL) 203 H 329 H Random Glucose Calcium Total Bilirubin AST ALT Alkaline Phosphatase Total Protein Albumin Globulin Albumin/Globulin Ratio Consultations:: List each consultation separately and include: 1. Reason for request. 2. Findings. 3. Follow-up Summary of Hospital Course include:: 1. Description of specific treatment plan utilized for patients during their course of treatmen. 2. Summarize the time- course for resolution of acute symptoms and/or regressed behaviors. 3. Describe issues identified and worked on during hospitalization. 4. Describe medication utilized. 5. Describe medical problems identified and treated. 6. Reassessment of suicide risk - Final Diagnosis (DSM 5) Condition upon Discharge: GOOD Disposition: AGAINST MEDICAL ADVICE Prescriptions/Medication Reconciliation: Insulin Glargine, Recombina [Lantus] 44 unit SC HS #1 vial Insulin Human Regular [Novolin R] 6 unit SC AC #1 vial Lisinopril [Zestril] 2.5 mg PO DAILY 30 Days #30 tab metFORMIN ER [glucoPHAGE XR] 1,000 mg PO BID #60 ter traZODone [Desyrel] 100 mg PO HS PRN #30 tab PRN Reason: Insomnia
== END 2017-09-05 15:40 | disposition left against medical advice (07) | DRG 743 ==
LOC: C.ER 10:03 → C.7D 15:09
PROVIDERS: ADMIT Psychiatry & Neurology Psychiatry; ATTEND Psychiatry & Neurology Psychiatry
DX: F11.23 Opioid dependence with withdrawal (principal); E11.65 Type 2 diabetes mellitus with hyperglycemia; F14.90 Cocaine use, unspecified, uncomplicated; F17.210 Nicotine dependence, cigarettes, uncomplicated; F41.9 Anxiety disorder, unspecified; Z79.4 Long term (current) use of insulin; F10.10 Alcohol abuse, uncomplicated; F19.10 Other psychoactive substance abuse, uncomplicated

== ENCOUNTER 2018-08-23 00:40 | Inpatient (IN) | payer MEDICAID | END 2018-08-29 01:30 | disposition home or self-care (01) | LOC: C.ER 00:40 → C.5E 00:56 ==